=== PATIENT | female | born 1990 ===

== ENCOUNTER 2023-12-25 19:24 | Emergency (ER) | payer BC ==
[2023-12-25] MEDS: Ketorolac 60 MG/2 ML SDV IM ONE (19:56)
[2023-12-25 20:22] LABS: CORONAVIRUS COVID-19 NAA NEGATIVE (NEGATIVE); INFLUENZA A NAA NEGATIVE (NEGATIVE); RESPIRATORY SYNCYTIAL VIR NAA NEGATIVE (NEGATIVE)
[2023-12-25] MEDS: Cefdinir 300 MG Cap PO ONE (20:49)
[2023-12-25 20:58] VITALS: BP 157/109; PULSE 107
== END 2023-12-25 20:52 | disposition home or self-care (01) ==
LOC: JD.ED 19:24
DX: J02.0 Streptococcal pharyngitis (principal); E66.9 Obesity, unspecified; Z68.42 Body mass index [BMI] 45.0-49.9, adult
CPT/HCPCS: 0241U; 87651; 96372; 99283; A9270; J1885